=== PATIENT | female | born 1995 | race Hispanic/Latino ===

== ENCOUNTER 2018-04-07 14:21 | Inpatient (IN) | payer OTHER, SELFPAY ==
--- NOTE | 2018-04-07 19:35 | HP ---
HISTORY OF PRESENT ILLNESS: This is an admission this evening for induction. This is a 22-year-old Latin-Beninese female G2, P1 at 39 weeks' gestation with an EDC of 04/09/2018, who is being admitted for an elective induction for possible macrosomic infant. The patient has received her care from Dr. Fox for her entire . Her insurance changed 2 weeks previously and she was un able to see Dr. Fox any longer. She had had her set up for induction this Wednesday for possible l arge baby. However, recent ultrasound showed a 7-pound 1-ounce baby according to the patient. She h as had 1 prior normal vaginal delivery, which was complicated only by pyelonephritis which led to lab or. Other than that, the baby turned out well. She has had no other prior serious medical condition s. PAST MEDICAL HISTORY: History of pyelonephritis. PAST SURGICAL HISTORY: Include spontaneous vaginal delivery x1. Other surgeries, wisdom teeth. FAMILY HISTORY: Paternal grandmother with brain cancer. SOCIAL HISTORY: She is . 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 She has one son. She does not smoke, does not drink. REVIEW OF SYSTEMS: As above. PHYSICAL EXAMINATION: VITAL SIGNS: Stable, afebrile. HEENT: Clear. HEART: Regular rate. LUNGS: Clear. ABDOMEN: Gravid. Cervix was 3-4 cm, 50%, high. EXTREMITIES: With no edema. LABORATORY AND X-RAY FINDINGS: O positive blood type, RPR nonreactive, rubella nonimmune, GBS negati ve. One-hour GCT 135. Hepatitis B negative. HIV negative. Urine culture negative. 14-week ultras ound showed a possible previa; however, repeat recent ultrasound showed no previa. ASSESSMENT: 1. 39-week 6-day intrauterine with possible macrosomia, followed by Dr. Fox and had s cheduled for an induction. 2. One prior normal vaginal delivery. 3. History of pyelonephritis with her last . PLAN: 1. Routine L&D orders. 2. Routine anesthesia orders. 3. We will begin Pitocin induction at approximately 10:00 p.m. this evening.
[2018-04-07] MEDS ORDERED: Butorphanol Tartrate 1 MG/ML VIAL SLOW IVP PRN (23:34)
[2018-04-07] MEDS ORDERED: Misoprostol 200 MCG TAB PR PRN (23:34)
[2018-04-07] MEDS ORDERED: HYDROcodone/Acetaminophen 5/325 mg Tablet PO PRN (23:34)
[2018-04-07] MEDS ORDERED: Ibuprofen 800 MG TAB PO PRN (23:34)
[2018-04-07] MEDS ORDERED: NS w/ Oxytocin 10 units 500 ML IV SCH (23:34)
[2018-04-07] MEDS ORDERED: Promethazine HCl 25 MG/ML VIAL IM PRN (23:34)
[2018-04-07] MEDS ORDERED: Zolpidem Tartrate 5 MG TAB PO PRN (23:34)
[2018-04-07] MEDS ORDERED: Lidocaine 1% (PF) 30 ML VIAL SC PRN (23:34)
[2018-04-07] MEDS ORDERED: Acetaminophen 500 MG TAB PO PRN (23:34)
[2018-04-07] MEDS ORDERED: Ondansetron HCl/PF 4 MG/2 ML Vial IVP PRN (23:34)
[2018-04-08 00:17] LABS: Hemoglobin 11.9 g/dL (12.0-16.0); Mean Corpuscular HGB CONC 34.9 g/dL (32.0-36.0); Mean Corpuscular Hemoglobin 29.1 pg (27.0-31.0); Mean Corpuscular Volume 83.4 fl (81.0-99.0); Mean Platelet Volume 7.6 fL (7.4-10.4); Platelet Count 284 thou/uL (130-400); RBC Distribution Width 12.3 % (11.5-14.5); Red Blood Cell (RBC) Count 4.09 mill/uL (4.20-5.40); White Blood Cell (WBC) Count 9.9 thou/uL (4.8-10.8)
[2018-04-08] MEDS: Lactated Ringer's 1,000 ML IV SCH ×2 (00:46→12:17)
[2018-04-08 00:55] LABS: Syphilis Antibody Nonreactive (Nonreactive); Syphilis Antibody Index 0.03 S/CO (<1.00 Non-Reactive)
[2018-04-08 01:10] LABS: HBSAg Index 0.16 S/CO (0-0.99); Hep B Surf Ag Non-Reactive S/CO (NonReactive)
[2018-04-08] MEDS ORDERED: Lidocaine 1.5% w/Epi 1:200K 30 ML VIAL (Epid Use) ONE (04:52)
[2018-04-08] MEDS ORDERED: Bupivacaine 0.75% 13.4 ML, fentaNYL Citrate/PF 400 MCG in Sodium Chloride 0.9% 78.6 ML EPIDURAL SCH (05:00)
[2018-04-08] MEDS ORDERED: DISCONTINUE ALL PREVIOUS NARCOTICS FS SCH (05:00)
[2018-04-08] MEDS ORDERED: Acetaminophen 325 MG TAB PO PRN (05:33)
[2018-04-08] MEDS ORDERED: Lactated Ringer's 500 ML IV PRN (05:33)
[2018-04-08] MEDS ORDERED: Ondansetron HCl/PF 4 MG/2 ML Vial IVP PRN (05:33)
[2018-04-08] MEDS ORDERED: diphenhydrAMINE 50 MG/ML VIAL IVP PRN (05:33)
[2018-04-08] MEDS ORDERED: ePHEDrine/0.9% NaCl/PF SYRINGE 50 mg/10 ml SLOW IVP PRN (05:33)
[2018-04-08] MEDS ORDERED: Eucerin (Mineral Oil/Petrolatum,White) 30 gm Jar TOP PRN (05:33)
[2018-04-08] MEDS ORDERED: Promethazine HCl 25 MG/ML VIAL IM PRN (05:33)
[2018-04-08] MEDS ORDERED: Naloxone HCl 0.4 mg/ml Vial IVP PRN ×2 (05:33)
[2018-04-08] MEDS ORDERED: Communication Order-Pharmacy FS SCH (05:45)
[2018-04-08] MEDS ORDERED: Fentanyl 4mcg/Marcaine 0.1% Cassette 100 ML EPIDURAL SCH (05:45)
[2018-04-08] MEDS ORDERED: Lidocaine HCl/Epinephrine 5 ML AMPUL IJ ONE (09:23)
[2018-04-08] MEDS: NS / Oxytocin 40 units/1000ml 1,000 ML IV PRN ×2 (10:25→12:39)
[2018-04-08] MEDS ORDERED: Milk Of Magnesia 30 ML UDCUP PO PRN (13:56)
[2018-04-08] MEDS ORDERED: Lanolin Ointment 7 GM TUBE TOP PRN (13:56)
[2018-04-08] MEDS ORDERED: NS / Oxytocin 40 units/1000ml 1,000 ML IV SCH (13:56)
[2018-04-08] MEDS ORDERED: Adacel (T-DAP) 0.5 ML VIAL IM ONE (13:56)
[2018-04-08] MEDS ORDERED: Bisacodyl 10 MG SUPP PR PRN (13:56)
[2018-04-08] MEDS ORDERED: HYDROcodone/Acetaminophen 5/325 mg Tablet PO PRN (13:56)
[2018-04-08] MEDS ORDERED: Lidocaine 2% MPF 10 ML AMP (For Epidural Use) ONE (15:37)
[2018-04-08] MEDS ORDERED: ePHEDrine/0.9% NaCl/PF SYRINGE 50 mg/10 ml ONE (15:37)
[2018-04-08] MEDS: Ferrous Sulfate 325 MG TAB PO SCH (18:12)
[2018-04-08] MEDS: Docusate Calcium (SURFAK) 240 MG CAP PO SCH (22:06)
[2018-04-08] MEDS: Ibuprofen 800 MG TAB PO SCH (22:06)
[2018-04-09 05:27] LABS: Mean Corpuscular HGB CONC 34.8 g/dL (32.0-36.0); Mean Corpuscular Hemoglobin 29.3 pg (27.0-31.0); Mean Corpuscular Volume 84.4 fl (81.0-99.0); Mean Platelet Volume 7.7 fL (7.4-10.4); Platelet Count 213 thou/uL (130-400); RBC Distribution Width 12.3 % (11.5-14.5); Red Blood Cell (RBC) Count 3.74 mill/uL (4.20-5.40); White Blood Cell (WBC) Count 10.9 thou/uL (4.8-10.8)
[2018-04-09] MEDS: Ibuprofen 800 MG TAB PO SCH ×3 (06:13→21:04)
--- NOTE | 2018-04-09 06:13 | PDOC.PP ---
Post Progress Note Post Day #: PPD#1 Subjective: Doing well. PO intake tolerated: yes Ambulation: yes Vital Signs (12 hours) Temp Pulse Resp BP 04/09/18 04:05 98.0 F 73 18 04/09/18 00:08 97.7 F 71 18 122/72 04/08/18 20:15 98.8 F 68 18 114/63 04/08/18 20:00 98.8 F 68 18 Weight Weight 220 g - Physical Examination General: NAD Abdominal: no distention Psychiatric: normal affect Result Diagrams: 04/09/18 05:07 Additional Labs: Post Labs Blood Type O POSITIVE 04/07/18 23:57 Hep Bs Antigen Non-Reactive S/CO (NonReactive) 04/07/18 23:57 - Assessment/Plan Doing well s/p . Routine PP care.
[2018-04-09] MEDS: Ferrous Sulfate 325 MG TAB PO SCH ×2 (10:00→16:24)
[2018-04-09] MEDS: Docusate Calcium (SURFAK) 240 MG CAP PO SCH ×2 (10:01→21:04)
[2018-04-09] MEDS: Prenatal Vitamin 1 TAB PO SCH (10:01)
[2018-04-10] MEDS: Ibuprofen 800 MG TAB PO SCH ×2 (05:08→13:14)
[2018-04-10] MEDS: Ferrous Sulfate 325 MG TAB PO SCH (07:27)
[2018-04-10 08:03] VITALS: BP 131/78; TEMP 97.9
[2018-04-10] MEDS: Docusate Calcium (SURFAK) 240 MG CAP PO SCH (09:25)
[2018-04-10] MEDS: Prenatal Vitamin 1 TAB PO SCH (09:26)
--- NOTE | 2018-04-10 12:32 | DIS ---
DATE OF ADMISSION: 04/07/2018 DATE OF DISCHARGE: 04/10/2018 ADMITTING DIAGNOSES: 1. Intrauterine at 39 weeks. 2. Elective induction. DISCHARGE DIAGNOSES: 1. Intrauterine at 39 weeks. 2. Elective induction. PROCEDURE PERFORMED: Term spontaneous vaginal delivery. HOSPITAL COURSE: Patient is a 22-year-old G2, P1 female with an intrauterine at 39 weeks g estation who was admitted on 04/07/2018 for an elective induction of labor. The induction was succes sful and resulted in a term spontaneous vaginal delivery. [facility]. Her hemoglobin is 11.0, hematocrit 31.6, platelets 213,000. Today is day #2. PHYSICAL EXAMINATION: VITAL SIGNS: Blood pressure is 131/78, temperature 97.9, pulse is 63, respiratory rate of 18. GENERAL: She appears to be in no acute distress. She is alert and oriented, cooperative and pleasan t to interact with. HEENT: Head, normocephalic, atraumatic. ABDOMEN: Fundus is firm. EXTREMITIES: Nontender, nonedematous. The patient is being discharged to home. She will be taking ibuprofen [id number] as needed for pain control. She has instructions to follow up with Dr. Giancarlo Sanchez in 6 weeks for her routine po stpartum visit. She also has instructions to seek medical attention sooner if she experiences fever, increasing pain or bleeding.
[2018-04-10] MEDS ORDERED: Measles/Mumps/Rubella 10 MCG/0.5 ML VIAL SC ONE (13:00)
== END 2018-04-10 13:45 | disposition home or self-care (01) | DRG 775 ==
LOC: L&D 22:03 → 3SW 04-08 13:27
PROVIDERS: ADMIT Family Medicine; ATTEND Family Medicine
PROC: 10E0XZZ Delivery of Products of Conception, External Approach (ICD-10-PCS; principal; 2018-04-07)
DX: O36.63X0 Maternal care for excessive fetal growth, third trimester, not applicable or unspecified (principal); Z37.0 Single live birth; Z3A.39 39 weeks gestation of pregnancy
CPT/HCPCS: 36415; 51702; 76815; 85027; 86780; 86850; 86900; 86901; 87340; 90707; J2001; J3010; J3490; J7050